=== PATIENT | male | born 1990 | race Two or more races ===

== ENCOUNTER 2024-05-20 12:42 | Emergency (ER) | payer OTHER ==
[~2024-05-20] VITALS: Ht 170.2 cm; Wt 80.7 kg
[2024-05-20] MEDS ORDERED: TETANUS & DIPHTHERIA TOX,ADULT 0.5 ML VIAL IM ONE (13:15)
[2024-05-20] MEDS ORDERED: CEFTRIAXONE SODIUM 1,000 MG VIAL IM STA (13:38)
== END 2024-05-20 16:41 | disposition home or self-care (01) ==
LOC: ER 12:44
DX: S01.82XA Laceration with foreign body of other part of head, initial encounter (principal); W45.8XXA Other foreign body or object entering through skin, initial encounter; Y93.89 Activity, other specified; Y92.89 Other specified places as the place of occurrence of the external cause